=== PATIENT | female | born 1940 | race Caucasian/White ===

== ENCOUNTER 2021-01-23 13:05 | Outpatient (REF) | payer OTHER, SELFPAY ==
[2021-01-23 14:40] LABS: Free T4 (Free Thyroxine) 0.97 ng/dL (0.71-1.85); Thyroid Stimulating Hormone 10.24 uIU/mL (0.32-4.0)
[2021-01-24 09:26] LABS: Insulin Level Total 5.9 uIU/mL
== END 2021-01-23 13:06 | disposition home or self-care (01) ==
LOC: HO.HMGCLDS 13:05
PROVIDERS: Visit Provider Internal Medicine
DX: E03.9 Hypothyroidism, unspecified (principal); E16.2 Hypoglycemia, unspecified
CPT/HCPCS: 36415; 83525; 84439; 84443

== ENCOUNTER 2021-04-16 10:51 | Outpatient (REF) | payer OTHER, SELFPAY ==
--- NOTE | 2021-04-16 | PFT_ITS ---
Forced vital capacity, FEV1, SIW50-20, and MVV are all normal rather somewhat super normal. Post bronchodilator therapy, no significant change is noted. Total lung capacity and residual volume also slightly super normal. Diffusion capacity is slightly decreased. CONCLUSION: Normal pulmonary function test. Very slight decrease in diffusion capacity is probably nonspecific or due to non-pulmonary factors. Clinical correlation recommended. MD BULL Nava/MODL / [id number]
== END 2021-04-16 10:52 | disposition home or self-care (01) ==
LOC: HO.RESP 10:51
PROVIDERS: PCP Internal Medicine; Visit Provider Internal Medicine
DX: R06.00 Dyspnea, unspecified (principal)
CPT/HCPCS: 94060; 94729

== ENCOUNTER → 2021-04-25 11:41 | Outpatient (BNVA) | payer OTHER, SELFPAY | PROVIDERS: PCP Internal Medicine; Visit Provider Internal Medicine Pulmonary Disease | DX: R06.00 Dyspnea, unspecified (principal) | CPT/HCPCS: 99202 ==

== ENCOUNTER 2022-03-13 12:34 | Outpatient (REF) | payer OTHER, SELFPAY ==
[2022-03-13 13:52] LABS: Anion Gap 12 (12-20); Blood Urea Nitrogen 21 mg/dL (9-16); Calcium 9.9 mg/dL (8.4-10.2); Carbon Dioxide 23 mmol/L (22-29); Chloride 108 mmol/L (96-108); Estimated Glomerular Filt Rate 54; Glucose Fasting 96 mg/dL (60-99); Potassium 4.2 mmol/L (3.3-5.1); Sodium 139 mmol/L (135-145)
[2022-03-13 14:31] LABS: Folate 10.3 ng/mL (> or = 4.0); Vitamin B12 221 pg/mL (200-900)
[2022-03-13 14:35] LABS: Erythrocyte Sedimentation Rate 11 MM/HR (0-20)
[2022-03-15 04:47] LABS: Lyme Abs Screen <0.90 index
== END 2022-03-13 12:35 | disposition home or self-care (01) ==
LOC: HO.LAB 12:34
PROVIDERS: PCP Internal Medicine; Visit Provider Psychiatry & Neurology Neurology
DX: G62.9 Polyneuropathy, unspecified (principal)
CPT/HCPCS: 36415; 80048; 82607; 82746; 85652; 86617; 86618

== ENCOUNTER 2023-07-31 12:00 | Emergency (ER) | payer OTHER, SELFPAY ==
[2023-07-31 12:04] VITALS: BP 127/80; PULSE 94; RESP 18; TEMP 36.8; O2SAT 100; BMI 24.0
--- NOTE | 2023-07-31 12:05 | ED_ITS ---
HPI - General Adult General Chief complaint: Upper Respiratory Symptoms Stated complaint: Asthma Attack Source: patient Mode of arrival: ambulatory Limitations: no limitations History of Present Illness HPI narrative: Patient is an 83-year-old female presenting to the emergency department with complaint of sore throat and states pain radiates up to her ears for 2 days. States that taking a deep breath makes her throat hurt more. Took a Covid test at home yesterday which was positive. Also complains of body aches and fatigue. MD complaint: sore throat, positive Covid test Onset (ago): day(s) Radiation: other (ears) Severity: severe Quality: burning Pain Consistency: constant Relieving factors: none Exacerbating factors: none Associated symptoms: other (fatigue, generalized body aches) Treatments prior to arrival: none Related Data Previous Rx's Medication Instructions Recorded albuterol sulfate 90 mcg/actuation 2 puff inhalation Q4-6H PRN 04/25/21 aerosol inhaler shortness of breath or wheezing 30 days #1 ea lorazepam 0.5 mg tablet (Ativan) 0.25 mg (1/2 x 0.5 mg) PO BID PRN 06/17/22 anxiety #8 tabs levothyroxine 112 mcg tablet 112 mcg PO DAILY 90 days #90 tabs 01/18/23 rosuvastatin 10 mg tablet 10 mg PO BEDTIME #90 tabs 01/18/23 nirmatrelvir 300 mg (150 mg See Rx Instructions PO .COMPLEX 07/31/23 x2)-ritonavir 100 mg tablet,dose #30 ea pack (Paxlovid) Allergies Allergy/AdvReac Type Severity Reaction Status Date / Time No Known Allergies Allergy Verified 07/31/23 12:10 Review of Systems Review of Systems: As per HPI. Yes all other systems are reviewed and are negative Constitutional: Constitutional: Reports as per HPI [facility] Past Medical History Medical History Acquired hypothyroidism Dyspnea Floaters in visual field Hypoglycemia Overweight (BMI 25.0-29.9) Pure hypercholesterolemia Transient visual disturbance Surgical History History of appendectomy History of laparoscopic cholecystectomy Family History Family History Father Heart disease Social History Social History Housing: Condominium Alcohol intake: current Alcohol intake frequency: holidays/special occasions only Patient Tobacco Use Status: Former Tobacco user e-Cigarette/Vaping Use: Never Used Second Hand Smoke Exposure: Yes service: No Current occupational status: retired Cognitive needs: No Hearing needs: Yes Vision needs: Yes Physical Exam ED Vital Signs: Vital Signs - 24 hr 07/31/23 12:04 Temperature 98.2 F Pulse Rate 94 Respiratory Rate 18 Blood Pressure 127/80 Pulse Oximetry 100 Oxygen Delivery Method Room Air BMI result Body Mass Index 24.0 Vital signs have been reviewed and appear to be correct. Blood pressure normal. Heart rate normal. Respiratory rate normal. Temperature normal. Oxygen saturation normal. Const General: cooperative, healthy appearing and no acute distress Orientation/consciousness: oriented to person, oriented to place, oriented to time and patient oriented x3 Limitations: no limitations HENMT Head: Yes normocephalic and Yes atraumatic Ears: hearing grossly normal bilaterally, external ears normal, TM's normal bilaterally and EAC's normal General nose exam: Normal external nose present Face and sinus: Yes face symmetric Mouth: Normal oral and palatal mucosa present, oropharynx normal and moist mucous membranes Throat: Yes uvula midline, No uvular edema, Yes cobblestoning and Yes other (no edema or exudate, no trismus) Eyes Pupils: Equal, round and reactive pupils present Neck Neck: Yes normal visual inspection and Yes supple Lymphatic: no lymphadenopathy noted Resp Effort & Inspection: normal respiratory effort and able to speak in complete sentences Auscultation: clear to auscultation bilaterally Cardio Rate: regular rate Rhythm: regular rhythm Heart sounds: S1 normal heart sound present and S2 normal heart sound present GI Palpation (GI): Soft to palpation and nontender Auscultation: normoactive bowel sounds General: Yes no CVA tenderness Back/Spine/Pelvis Back: no CVA tenderness Skin General skin exam: elasticity normal and turgor normal Neuro General: oriented to person, oriented to place, oriented to time, patient oriented x3, moves all extremities, no focal motor deficits and CN's II-XI intact bilaterally Cranial nerves: Yes Equal, round and reactive pupils present Cognition (Neuro): normal cognition Extrem General: Yes full ROM, Yes no pedal edema and Yes no calf tenderness Psych Mental Status: mental status grossly normal Affect: normal affect Thought process: Normal thought process present Medical Decision Making Medical Decision Making [facility] Narrative: Patient is an 83-year-old female presenting to the emergency department with complaint of sore throat and states pain radiates up to her ears for 2 days. On exam patient is awake, A+Ox3, VS WNL, afebrile, normal neurological exam without focal deficits, physical exam findings as above. Given reported symptoms and physical exam findings, initial differential includes COVID, influenza, strep pharyngitis, other viral illness. COVID swab positive, swabs for flu and strep both negative. Patient updated on results all questions answered. Patient medicated with dexamethasone in the ED. Discussed treatment with Paxlovid which patient is agreeable to. Advised patient to alternate Tylenol and ibuprofen as needed for sore throat. Instructed patient to follow-up with primary care provider. Return precautions discussed at bedside. Patient verbalized understanding of and agreement with plan. Differential Diagnosis Differential Diagnoses: The differential diagnosis associated with the presentation includes As per [facility]. Lab Data [facility] Lab Attestation statement: I reviewed the patient's lab results. As per [facility]. Labs: Lab Results 07/31/23 Range/Units 12:14 COVID-19 (MARTINEZ) Positive A (Negative) COVID-19 Clin Com See Note Influenza Type A (TRINI) Negative (Negative) Influenza Type B (TRINI) Negative (Negative) Influenza A & B Note See Note S. pyogenes GrpA TRINI Negative (Negative) External Record Review External record reviewed: Inpatient record, Office record and Outpatient record Prescription Management I considered prescription management with: Antiviral and Other Discharge Plan Discharge Clinical Impression: COVID-19 Patient Disposition: Home, Self-Care Instructions: COVID-19 (Coronavirus Disease 2019) (ED) Additional Instructions: You were evaluated in the emergency department today for sore throat, fatigue, and body aches. Your COVID test was resulted as positive. You should continue to isolate at home for another 4 days. You should continue to wear mask for 5 days after that. You were given a one-time dose of a steroid in the emergency department today to decrease inflammation. You should also take 650mg Tylenol and 400mg ibuprofen every 6 hours. If necessary, you can alternate these medications every 3 hours. For example, a at noon take Tylenol, then at 3:00 p.m. take ibuprofen, then at 6:00 p.m. take Tylenol. You were offered treatment with Paxlovid which you agreed to, the prescription was sent to your pharmacy. Return to the emergency department with worsening shortness of breath, chest pain, fever that does not improve with Tylenol or ibuprofen, persistent vomiting, or any other concerning symptoms. Please follow-up with your primary care provider this week. Prescriptions: New Paxlovid 300 mg (150 mg x 2)-100 mg tablets,dose pack See Rx Instructions .ROUTE .COMPLEX Qty: 30 0RF Rx Instructions: take TWO 150 mg tablets of nirmatrelvir with ONE 100 mg tablet of ritonavir twice daily for 5 days No Action levothyroxine 112 mcg tablet 112 mcg PO DAILY 90 Days Qty: 90 1RF rosuvastatin 10 mg tablet 10 mg PO BEDTIME Qty: 90 0RF lorazepam [Ativan] 0.5 mg tablet 0.25 mg PO BID PRN (Reason: anxiety) Qty: 8 0RF albuterol sulfate 90 mcg/actuation HFA aerosol inhaler 2 puff inhalation Q4-6H PRN (Reason: shortness of breath or wheezing) 30 Days Qty: 1 3RF
[2023-07-31 12:36] LABS: COVID-19 Test Positive (Negative); IDNOW Serial# BCCEAD1C
[2023-07-31 12:37] LABS: IDNOW Serial# 08D9AD1C; Strep A Nucleic Acid Negative (Negative)
[2023-07-31 12:40] LABS: IDNOW Serial# 9DB6401D; Influenza A Negative (Negative); Influenza B2 Negative (Negative)
[2023-07-31] MEDS: dexAMETHasone 2 MG TABLET 10 MG PO (13:45)
== END 2023-07-31 13:51 | disposition home or self-care (01) ==
PROVIDERS: Registered Nurse Emergency; Emergency Provider Emergency Medicine
DX: U07.1 COVID-19 (principal); J45.909 Unspecified asthma, uncomplicated
CPT/HCPCS: 87502; 87635; 87651; 99282; 99283; J8540

== ENCOUNTER → 2025-04-13 00:41 | Outpatient (BNV) | payer OTHER, SELFPAY | PROVIDERS: PCP Internal Medicine; Visit Provider Radiology Diagnostic Radiology | DX: S80.12XA Contusion of left lower leg, initial encounter (principal); W19.XXXA Unspecified fall, initial encounter | CPT/HCPCS: 73590 ==

== ENCOUNTER 2025-04-13 01:00 | Emergency (ER) | payer OTHER, SELFPAY ==
--- NOTE | ~2025-04-13 | XR_ITS ---
CLINICAL HISTORY: fall 2 views left tibia-fibula Comparison: None Findings: There is no fracture. Joint alignment is normal. There is no radiopaque foreign body. There is subcutaneous edema. Impression: No acute osseous abnormality. This document has been electronically signed by: Josué Velasquez MD on 04/13/2025 02:53:51
[2025-04-13 01:07] VITALS: BP 138/77; PULSE 98; O2SAT 98
[2025-04-13 01:16] VITALS: BP 148/80; PULSE 100; RESP 17; TEMP 36.8; O2SAT 93; BMI 25.8
[2025-04-13 03:29] VITALS: BP 133/79; PULSE 83; RESP 14; TEMP 35.7; O2SAT 94
--- NOTE | 2025-04-13 03:47 | ED.GENADULT ---
HPI - General Adult General Chief complaint: Fall Stated complaint: Mech Fall, L leg injury, H/S, - Thinners, Time Seen by Provider: 04/13/25 03:06 Source: patient Mode of arrival: EMS Limitations: no limitations History of Present Illness ED Provider: Curry PENA HPI narrative: The patient is a an 84-year-old female presenting to the ED reporting earlier today while taking a shower she suffered a mechanical fall while stepping out of the shower after the shower mat moved unexpected with the causing her to fall onto her left anterior valente. The patient denies head strike or LOC, denies anticoagulation. The patient reports she had pain and bruising which she noted beginning in her left valente and radiating towards her left calf. The patient denies other acute somatic complaint. At time of this provider's interviewed the patient states she is already feeling markedly improved and feels she over-reacted. The patient denies any pain in the lower extremity, denies any pain with ambulation while in the ED. patient denies any chest pain, shortness of breath, abdominal pain, headache, focal neurological deficit, dizziness, or other prodrome prior to the mechanical fall. The patient reports she feels at her baseline state of health in the ED. Related Data Previous Rx's ?Medication ?Instructions ?Recorded albuterol sulfate 90 mcg/actuation 2 puff inhalation Q4-6H PRN 04/25/21 aerosol inhaler shortness of breath or wheezing 30 days #1 ea lorazepam 0.5 mg tablet (Ativan) 0.25 mg (1/2 x 0.5 mg) PO BID PRN 06/17/22 anxiety #8 tabs rosuvastatin 10 mg tablet 10 mg PO BEDTIME #90 tabs 01/18/23 nirmatrelvir 300 mg (150 mg See Rx Instructions PO .COMPLEX 07/31/23 x2)-ritonavir 100 mg tablet,dose #30 ea pack (Paxlovid) levothyroxine 112 mcg tablet 112 mcg PO DAILY 90 days #90 tabs 03/23/25 Allergies Allergy/AdvReac Type Severity Reaction Status Date / Time No Known Allergies Allergy Verified 04/13/25 01:17 Review of Systems Review of Systems: Yes all other systems are reviewed and are negative PMFSH Past Medical History Medical History Acquired hypothyroidism Dyspnea Floaters in visual field Hypoglycemia Overweight (BMI 25.0-29.9) Pure hypercholesterolemia Transient visual disturbance Surgical History History of appendectomy History of laparoscopic cholecystectomy Family History Family History Father Heart disease Social History [facility] Alcohol intake: current Alcohol intake frequency: holidays/special occasions only Patient Tobacco Use Status: Former Tobacco user e-Cigarette/Vaping Use: Never Used Second Hand Smoke Exposure: Yes Advance Directives: No Advance Directives Information Provided: Yes Do you have a plan to hurt others: No Plan service: No Current occupational status: retired Cognitive needs: No Hearing needs: Yes Vision needs: Yes Physical Exam ED Vital Signs: Vital Signs - 24 hr 04/13/25 01:16 04/13/25 03:29 04/13/25 04:09 Temperature 98.3 F 96.3 F L 96.3 F L Pulse Rate 100 83 83 Respiratory Rate 17 14 14 Blood Pressure 148/80 H 133/79 133/79 Pulse Oximetry 93 94 94 Oxygen Delivery Method Room Air Room Air Room Air BMI result Body Mass Index 25.8 CONSTITUTIONAL: The patient appears non-toxic, well nourished and in no acute distress. Vital signs as documented. HEAD: Atraumatic, normocephalic. EYES: EOMs grossly intact, pupils equal, conjunctiva clear, no exudate. ENT: Nares patent, no discharge. Airway patent, no audible stridor, visible mucosa is pink and moist without noted lesions. NECK: trachea is midline, no obvious masses or gross abnormalities. CHEST: Symmetric movement, normal appearance. LUNGS: Non-labored work of breathing. CARDIAC: No evidence of hypoperfusion. ABDOMEN: Nondistended, no obvious injury. : Deferred. EXTREMITIES: There is [id number] ecchymosis noted of the mid to proximal anterior left valente, distal CSM intact, 2+ DP/PT pulses, no bony tenderness or crepitus. No open injury. Moves all extremities spontaneously without reported pain. No obvious injury or deformity noted. NEURO: Alert and oriented x3, CN II-XII appear grossly intact. Cerebellar Functioning grossly intact. Speech clear and appropriate. SKIN: Warm, dry, color appropriate. No rashes or lesions noted. Medical Decision Making Medical Decision Making MDM Narrative: The patient is an 84-year-old female presenting to the ED for evaluation of left valente pain status post mechanical fall while getting out of the shower. At time the patient interviewed the patient reports her symptoms have resolved and she feels she over-reacted to the initial fall. The patient denies any acute somatic complaint as requesting discharge home. Patient's x-ray shows no evidence of acute fracture. Patient's exam is otherwise benign, patient ambulates with a steady gait without assistance. Patient will be discharged home with contusion instructions. Radiology Impression Discussion of test interpretation with radiology: I have reviewed the radiologist's reading. Radiologist Impression: CLINICAL HISTORY: fall 2 views left tibia-fibula Comparison: None Findings: There is no fracture. Joint alignment is normal. There is no radiopaque foreign body. There is subcutaneous edema. Impression: No acute osseous abnormality. This document has been electronically signed by: Josué Velasquez MD on 04/13/2025 02:53:51 Discharge Plan Discharge Clinical Impression: Contusion of left lower leg, initial encounter Fall Qualifiers: Encounter type: initial encounter Qualified Code(s): W19.XXXA - Unspecified fall, initial encounter Patient Disposition: Home, Self-Care Instructions: Contusion in Adults (ED), Fall Prevention (ED) Additional Instructions: Thank you for choosing [facility]'s Emergency Department for your care today. Thankfully your x-ray today shows no fracture of your left lower leg as a result of your fall in the shower. At this time there is no evidence of an acute process requiring admission to the hospital or continued ED observation, and it is safe to discharge you home. Your fall did result in a significant contusion/bruise of the front of your left lower leg, please apply ice to this area to reduce swelling and pain. The bruise will begin to turn colors and may advanced down towards your foot, this is natural. You may take alternating (staggered) doses of ibuprofen 600mg and Tylenol 1000mg every 4 hours as needed for any additional pain. Please also continue taking your regularly prescribed medications. Please rest the injured area, and apply ice for 20 minutes every hour. Please follow up with your primary care physician for re-evaluation, additional management of your symptoms, and continued preventative care. If you do not have a primary care physician, please call the [facility] at [phone] to establish a new primary care physician. While waiting to establish your new primary care physician, you can call our Walk[facility]in [facility] at [phone] for non-emergency needs. Please return to the emergency department if you develop a severe or sudden change in your symptoms, a fever over 100.4 that does not improve with Tylenol or Ibuprofen, recurrent vomiting, or any other new or worsening symptoms or concerns. Prescriptions: No Action rosuvastatin 10 mg tablet 10 mg PO BEDTIME Qty: 90 0RF levothyroxine 112 mcg tablet 112 mcg PO DAILY 90 Days Qty: 90 1RF Paxlovid 300 mg (150 mg x 2)-100 mg tablets,dose pack See Rx Instructions .ROUTE .COMPLEX Qty: 30 0RF Rx Instructions: take TWO 150 mg tablets of nirmatrelvir with ONE 100 mg tablet of ritonavir twice daily for 5 days lorazepam [Ativan] 0.5 mg tablet 0.25 mg PO BID PRN (Reason: anxiety) Qty: 8 0RF albuterol sulfate 90 mcg/actuation HFA aerosol inhaler 2 puff inhalation Q4-6H PRN (Reason: shortness of breath or wheezing) 30 Days Qty: 1 3RF Referrals: Diaz Knapp MD [Primary Care Provider, Internal Medicine] Clinical Impression: Fall; Contusion of left lower leg, initial encounter Interventions: ED Discharge Assessment Last Done: 04/13/25 04:09 Discharge Date/Time: 04/13/25 04:09 Print Language: Indian
--- NOTE | 2025-04-13 04:06 | PC.NURSE ---
patient ambulates with steady gait independently. uber confirmed at bedside with this RN, in waiting
[2025-04-13 04:09] VITALS: BP 133/79; PULSE 83; RESP 14; TEMP 35.7; O2SAT 94
== END 2025-04-13 04:09 | disposition home or self-care (01) ==
PROVIDERS: Emergency Provider Emergency Medicine; PCP Internal Medicine
DX: S80.12XA Contusion of left lower leg, initial encounter (principal); W18.2XXA Fall in (into) shower or empty bathtub, initial encounter; Y93.E1 Activity, personal bathing and showering; Y92.002 Bathroom of unspecified non-institutional (private) residence as the place of occurrence of the external cause; Y99.8 Other external cause status; Z87.891 Personal history of nicotine dependence
CPT/HCPCS: 73590; 99283

== ENCOUNTER 2025-04-14 10:04 | Outpatient (REF) | payer OTHER, SELFPAY ==
[2025-04-14 11:09] LABS: MANUAL DIFF FLAG NO
[2025-04-14 11:38] LABS: Hematocrit 31.0 % (37.0-47.0); Hemoglobin 11.2 g/dl (12.0-16.0); Imm Gran Abs Auto 0.12 X10*3/uL (0.00-0.03); Imm Gran Pct Auto 1.2 % (0.0-0.4); Lymphocytes Absolute Auto 1.1 X10*3/uL (1.2-4.9); Mean Corpuscular HGB Conc 36.1 g/dl (31.0-35.0); Mean Corpuscular Hemoglobin 30.2 pg (27.0-33.0); Mean Corpuscular Volume 83.6 fL (80.0-98.0); NRBC Abs Auto 0.000 X10*3/uL (0.0-0.012); NRBC Pct Auto 0.0 /100WBC (0.0-0.2); Platelet Count 377 X10*3/uL (160-400); Red Blood Count 3.71 X10*6/uL (4.20-5.50); White Blood Count 9.6 X10*3/uL (4.8-10.8)
[2025-04-14 12:36] LABS: Alanine Aminotransferase 39 U/L (0-31); Albumin Level 4.0 g/dL (3.5-5.0); Alkaline Phosphatase 113 U/L (39-117); Anion Gap 10 (12-20); Aspartate Amino Transferase 46 U/L (5-31); Blood Urea Nitrogen 21 mg/dL (9-16); Calcium 8.5 mg/dL (8.4-10.2); Carbon Dioxide 23 mmol/L (22-29); Chloride 93 mmol/L (96-108); Cholesterol 224 mg/dL (<200); Estimated Glomerular Filt Rate > 60; HDL Cholesterol 73 mg/dL (>40); Potassium 4.2 mmol/L (3.3-5.1); Sodium 122 mmol/L (135-145); Total Protein 6.6 g/dL (6.5-8.0); Triglycerides 64 mg/dL (<150)
[2025-04-14 13:18] LABS: Free T4 (Free Thyroxine) 0.74 ng/dL (0.71-1.85)
== END 2025-04-14 10:05 | disposition home or self-care (01) ==
LOC: HO.LAB 10:04
PROVIDERS: PCP Physician Assistant; Visit Provider Physician Assistant
DX: R41.89 Other symptoms and signs involving cognitive functions and awareness (principal); E03.9 Hypothyroidism, unspecified; E78.00 Pure hypercholesterolemia, unspecified; R41.3 Other amnesia; Z79.899 Other long term (current) drug therapy
CPT/HCPCS: 36415; 80048; 80061; 80076; 82306; 84439; 84443; 85025; 99202

== ENCOUNTER 2025-04-14 10:04 | Outpatient (AMB) | payer OTHER, SELFPAY ==
--- OUTSIDE RECORDS SUMMARY | 2024-08-19 07:30 | XMS_ITS ---
Author Organization [facility] Address [address] [place] [address] Care Team Providers Care Talent Recruiter Name Role Phone JonesDaly bean Unavailable [phone] Carl Newsome Unavailable [phone] Encounters Encounter Location Date Provider Diagnosis [facility] [address] [place] [address] 08/19/2024 Carl Newsome Plan Of Treatment No Information Progress Notes * Shereen SALAZARDOB:1940 ( 84 yo F)Acc No.[id number]:08/19/2024 Progress Notes Patient: Shereen REYES Provider: Jennifer Newsome DPM :1940 A ge:84 Y S ex:Female Date:08/19/2024 Address:[address] [place] [phone] Subjective: * Chief Complaints: * * Medical [...] 10/19/2023 Generated for Sang price/Manan/Dudleyitting on: 0 04/14/2025 10:25 AM EDT
--- NOTE | 2025-04-14 10:15 | A.OFFPC_ITS ---
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 Here today with with Yohan gusman and mayda Bingham. ARRIVED 22 MINUTES LATE FOR 30 MINUTE APPOINTMENT. Chronic problems addressed. Hyperlipidemia- not taking rosuvastatin Hypothyroidism-taking levothyroxine as prescribed Cognitive impairment with anxiety- family reporting short-term memory loss. She was previously referred to Neurology but does not look like she was ever given an appointment. She currently lives alone and is independent on ADLs. She is not driving. She does take lorazepam but her niece reports increasing anxiety and paranoia still. Asthma-rare albuterol use Falls-not frequent. However, patient fell in the shower the other day after losing her footing. She does have grab bars in the shower. She has contusion on the left lower leg. She was seen in the ER for this. falls several days ago. in shower . grab chairs. contusion Concerns: Bilateral lower extremity edema Discussed that any additional concerns need to be brought up at a following appointment Health maintenance: No longer undergoing mammograms or DEXA scans No longer undergoing colonoscopy ROS: General: No fevers, malaise, unintentional weight loss Cardiovascular: No chest pain, palpitations, or leg edema Respiratory: No shortness of breath, wheezing, cough MSK: No myalgia, back pain Neuro: No headaches, weakness, paresthesias Skin: No rashes or lesions EXAM: Constitutional - Awake and Alert, No apparent distress Eyes - PERRL Cardiovascular - S1S2, RRR, 2+ pitting edema of the bilateral lower extremities Respiratory - Normal lung expansion, Normal respiratory effort, No respiratory distress, CTA bilaterally Extremities - no calf tenderness bilaterally, no swelling Skin - Warm/Dry. Contusion of the left lower extremity Neurological - Alert & oriented x3 Psychological - Appropriate affect [facility] Medical History Acquired hypothyroidism Dyspnea Floaters in visual field Hypoglycemia Overweight (BMI 25.0-29.9) Pure hypercholesterolemia Transient visual disturbance Surgical History History of appendectomy History of laparoscopic cholecystectomy Family History Father Heart disease [facility] Alcohol intake: current Alcohol intake frequency: holidays/special occasions on ly Patient Tobacco Use Status: Former Tobacco user e-Cigarette/Vaping Use: Never Used Second Hand Smoke Exposure: Yes service: No Current occupational status: retired Cognitive needs: No Hearing needs: Yes Vision needs: Yes Questionnaire Thrive Questionnaire Date Thrive assessed: 12/26/21 AMRITA-7 AMB Questionnaire AMRITA-7 Date AMRITA - 7 assessed: 12/26/21 Source: Developed by Drs. Mark Lyn, Josi Amaral, Kevin Fisher and colleagues, with an educational zahra from [employer]. Physical exam (Primary Care) Vital Signs: Last Vital Signs Temp 97.7 F 04/14/25 10:22 Pulse 85 04/14/25 10:22 Resp 16 04/14/25 10:22 BP 120/64 04/14/25 10:22 Pulse Ox 97 04/14/25 10:22 Oxygen Delivery Method Room Air 04/14/25 10:22 Tobacco/Smoking Status: Tobacco use Status Tobacco use date assessed 12/26/21 04/14/25 10:18 Patient Tobacco Use Status Former Tobacco user 04/14/25 10:18 e-Cigarette/Vaping Use Never Used 04/14/25 10:18 Thrive Assessment: Date of Thrive Assessment Date Thrive assessed 12/26/21 04/14/25 10:18 Coding Level of Care Code New Pt Level 4 (28997) Complex EM visit Add On G2211 Diagnoses Cognitive impairment R41.89 Acquired hypothyroidism E03.9 Pure hypercholesterolemia E78.00 Memory loss R41.3 Assessment & Plan Assessment & Plan (1) Cognitive impairment: Code(s): R41.89 - Other symptoms and signs involving cognitive functions and awareness Category: Medical Plan: Referred to memory Clinic. Prescribed quetiapine for agitation/paranoia. Agree with no driving. Currently functioning well at home and able to perform ADLs. Continue use of grab bars and will prescribe cane and shower chair. MRI of the brain ordered (2) Acquired hypothyroidism: Code(s): E03.9 - Hypothyroidism, unspecified Category: Medical Plan: TSH with reflex free T4 ordered. Continue levothyroxine (3) Pure hypercholesterolemia: Code(s): E78.00 - Pure hypercholesterolemia, unspecified Category: Medical Plan: Lipid panel ordered. No longer taking rosuvastatin. Diet low in saturated fats and highly processed foods (4) Memory loss: Code(s): R41.3 - Other amnesia Category: Medical Plan: Referred to neurology. MRI of the brain ordered due to memory loss and worsening cognitive impairment Plan Follow-up in the office for further discussion on acute concerns Compression stockings ordered for bilateral lower extremity edema Orders: Orders 2 TSH reflex Free T4 Today E03.9 - Hypothyroidism, unspecified, E78.00 - Pure hypercholesterolemia, unspecified, R41.89 - Other symptoms and signs involving cognitive functions and awareness Vitamin D 25-OH Total Today E03.9 - Hypothyroidism, unspecified, E78.00 - Pure hypercholesterolemia, unspecified, R41.89 - Other symptoms and signs involving cognitive functions and awareness MR head/brain wo con Today R41.3 - Other amnesia, R41.89 - Other symptoms and signs involving cognitive functions and awareness Basic Metabolic Panel Today E03.9 - Hypothyroidism, unspecified, E78.00 - Pure hypercholesterolemia, unspecified, R41.89 - Other symptoms and signs involving cognitive functions and awareness Liver Panel Today E03.9 - Hypothyroidism, unspecified, E78.00 - Pure hypercholesterolemia, unspecified, R41.89 - Other symptoms and signs involving cognitive functions and awareness Lipid Panel Today E03.9 - Hypothyroidism, unspecified, E78.00 - Pure hypercholesterolemia, unspecified, R41.89 - Other symptoms and signs involving cognitive functions and awareness Complete Blood Count Auto Diff Today E03.9 - Hypothyroidism, unspecified, E78.00 - Pure hypercholesterolemia, unspecified, R41.89 - Other symptoms and signs involving cognitive functions and awareness Referrals Neurology Referral E78.00 - Pure hypercholesterolemia, unspecified Medications: New reji.stocking,thigh,reg,med As directed 24 ea 0RF R60.0 - Localized edema reji.stocking,thigh,reg,med As directed 24 ea 0RF quetiapine (Seroquel) 25 mg PO .@1500 90 tabs 1RF hydroxyzine HCl 25 mg PO BID PRN 180 tabs 1RF itching Shower Chair As directed 1 ea 0RF R26.81 - Unsteadiness on feet, W18.2XXA - Fall in (into) shower or empty bathtub, initial encounter cane As directed. Three prong 1 ea 0RF R26.81 - Unsteadiness on feet, R29.6 - Repeated falls
[2025-04-14 10:22] VITALS: BP 120/64; PULSE 85; RESP 16; TEMP 36.5; O2SAT 97
--- OUTSIDE RECORDS SUMMARY | 2025-04-14 10:25 | XMS_ITS | Clinical Summary ---
Author Organization [facility] Address [address] [id number] Care Team Providers Care Qualitative Researcher Name Role Phone Unknown, Pcp MD Primary Care Provider Unavailabl e Allergies No known active allergies Medications levothyroxine (SYNTHROID, LEVOTHROID) 112 MCG tablet Take 112 mcg by mouth daily at 6:30 am. Active ondansetron (ZOFRAN) 4 MG tablet Take 1 tablet (4 mg total) by mouth every 4 (four) hours as needed. 12 tablet 08/16/2017 Active Active Problems No known active problems Social History Tobacco Use Types Packs/Day Years Used Date Smoking Tobacco: Never Assessed Comments Unknown Sex and Gender Information Value Date Recorded Sex Assigned at Not on file Legal Sex Female 12:39 AM EST Gender Identity Not on file Sexual Orientation Not on file Last Filed Vital Signs Vital Sign Reading Time Taken Comments Blood Pressure 135/67 08/16/2017 4:45 AM EST Pulse 82 08/16/2017 4:45 AM EST Temperature 36.4 C (97.6 F) 08/16/2017 2:48 AM EST Respiratory Rate 18 08/16/2017 4:45 AM EST Oxygen Saturation 97% 08/16/2017 4:45 AM EST Inhaled Oxygen Concentration - - Weight - - Height 154.9 cm (5' 1 ) 08/16/2017 12:43 AM EST Body Mass Index - - Plan of Treatment Not on file [place] [facility] [place] [address] [facility] [employer] Care Teams Qualitative Researcher Relationship Specialty Start Date End Date Unknown, Pcp, Unknown Address [address] [place] [address] PCP - General 08/16/17
== END 2025-04-14 10:45 | disposition home or self-care (01) ==
LOC: HO.HMCHD 10:05
PROVIDERS: Visit Provider Physician Assistant
DX: R41.89 Other symptoms and signs involving cognitive functions and awareness (principal); E03.9 Hypothyroidism, unspecified; E78.00 Pure hypercholesterolemia, unspecified; R41.3 Other amnesia

== ENCOUNTER 2025-05-15 13:04 | Outpatient (AMB) | payer OTHER, SELFPAY ==
--- OUTSIDE RECORDS SUMMARY | 2024-08-19 07:30 | XMS_ITS ---
Author Organization [facility] Address [address] [place] [address] Care Team Providers Care Ruby On Rails Engineer Name Role Phone JonesDaly bean Unavailable [phone] Carl Newsome Unavailable [phone] Encounters Encounter Location Date Provider Diagnosis [facility] [address] [place] [address] 08/19/2024 Carl Newsome Plan Of Treatment No Information Progress Notes * Shereen SALAZARDOB:1940 ( 84 yo F)Acc No.[id number]:08/19/2024 Progress Notes Patient: Shereen REYES Provider: Jennifer Newsome DPM :1940 A ge:84 Y S ex:Female Date:08/19/2024 Address:[address] [place] [phone] Subjective: * Chief Complaints: * * Medical History: Objective: * Vitals: Assessment: Plan: * Treatment: * Images: * The named appointment provid er may or may not be the originator of this progress note, and it is not deemed complete until electronically signed by the appointment provider. Sign off status: Pending * Provider: Jennifer Newsome DPM Date: 10/19/2023 Generated for Sang price/Manan/Dudleyitting on: 0 05/15/2025 01:59 PM EDT
--- NOTE | 2025-05-15 13:11 | A.OFFPC_ITS ---
Vital Signs 05/15/25 13:16 Height 5 ft 2 in BP 120/84 Pulse 91 Pulse Source Pulse Oximeter Temp 98.2 F Pulse Oximetry (%) 99 Oxygen Delivery Method Room Air Intake Visit Reasons: 1 month f/u Business Specialist Required: No Accompanied by: Brother Allergies No Known Allergies Allergy (Verified 05/15/25 13:12) Tobacco use date assessed: 12/26/21 HPI HPI Comments History of Present Illness Details 84-year-old female with history of hypot hyroidism, hyperlipidemia, asthma, cognitive impairment presents to the office today for follow up. Hyperlipidemia- not taking rosuvastatin Hypothyroidism-taking levothyroxine as prescribed. maybe not? question Cognitive impairment with anxiety- family reporting short-term memory loss. She was previously referred to Neurology but does not look like she was ever given an appointment. She currently lives alone and is independent on ADLs. She is not driving. She does take lorazepam but her niece reports increasing anxiety and paranoia still. At last visit, pt was found to be quite confused. Sodium ultimately found to be 122 and sent to ED. Admitted for [facility]. TSH significant elevated near 50, thought to be cause of hypnetremia. Seen by endo recommending levothyroxine 125mcg. Also evaluated by nephro. Advised sertraline can be restarted and titrate pending sodium levels. Despite changes, memory deficits continue. Healthcare proxy was invoked. She was discharged to [facility] on 05/05. Has already been referred to neuro, awaiting appt and brain MRI. Now home with PT/OT. Per her daughter, DC papers suggested ankle fracture but this is not noted in any discharge paper reviewed from [facility]. Still at [facility]. Per [facility], concerns for cellulitis ble. On exam, pt with venous stasis dermatitis, no infection. No fevers. No diuretic currently for the BLE edema. Unable to tolerate compression stockings. Health maintenance: No longer undergoing mammograms or DEXA scans No longer undergoing colonoscopy ROS: General: No fevers, malaise, unintentional weight loss Cardiovascular: No chest pain, palpitations. see hpi Respiratory: No shortness of breath, wheezing, cough MSK: No myalgia, back pain Neuro: No headaches, weakness, paresthesias. see hpi Skin: No rashes or lesions EXAM: Constitutional - Awake and Alert, No apparent distress Eyes - PERRL Cardiovascular - S1S2, RRR, 2+ pitting edema of the bilateral lower extremities Respiratory - Normal lung expansion, Normal respiratory effort, No respiratory distress, CTA bilaterally Extremities - no calf tenderness bilaterally, no swelling Skin - Warm/Dry. Contusion of the left lower extremity. Venous stasis dermatitis with several weeping ulceration serous fluid Neurological - Alert & oriented to self. moving all extem Psychological - Appropriate affect PFSH Medical History Acquired hypothyroidism Dyspnea Floaters in visual field Hypoglycemia Overweight (BMI 25.0-29.9) Pure hypercholesterolemia Transient visual disturbance Surgical History History of appendectomy History of laparoscopic cholecystectomy Family History Father Heart disease [facility] Alcohol intake: current Alcohol intake frequency: holidays/special occasions only Patient Tobacco Use Status: Former Tobacco user e-Cigarette/Vaping Use: Never Used Second Hand Smoke Exposure: Yes service: No Current occupational status: retired Cognitive needs: No Hearing needs: Yes Vision needs: Yes Questionnaire Thrive Questionnaire Date Thrive assessed: 12/26/21 AMRITA-7 AMB Questionnaire AMRITA-7 Date AMRITA - 7 assessed: 12/26/21 Source: Developed by Drs. Mark Lyn, Josi Amaral, Kevin Fisher and colleagues, with an educational zahra from [employer]. Physical exam (Primary Care) Vital Signs: Last Vital Signs Temp 98.2 F 05/15/25 13:16 Pulse 91 05/15/25 13:16 BP 120/84 05/15/25 13:16 Pulse Ox 99 05/15/25 13:16 Oxygen Delivery Method Room Air 05/15/25 13:16 Tobacco/Smoking Status: Tobacco use Status Tobacco use date assessed 12/26/21 05/15/25 13:17 Patient Tobacco Use Status Former Tobacco user 05/15/25 13:17 e-Cigarette/Vaping Use Never Used 05/15/25 13:17 Thrive Assessment: Date of Thrive Assessment Date Thrive assessed 12/26/21 05/15/25 13:17 Coding Level of Care Code Est Pt Level 5 (29418) Complex EM visit Add On G2211 Diagnoses Hospital discharge follow-up Z09 Cognitive impairment R41.89 Lower extremity edema R60.0 Venous ulcer of ankle I83.003; L97.309 Hyponatremia E87.1 Acquired hypothyroidism E03.9 Time Spent (min) 45 Assessment & Plan Assessment & Plan (1) Hospital discharge follow-up: Code(s): Z09 - Encounter for follow-up examination after completed treatment for conditions other than malignant neoplasm Category: Medical Plan: Hospital discharge paperwork reviewed. Plan as below. Discharge meds reviewed and reconciled (2) Cognitive impairment: Code(s): R41.89 - Other symptoms and signs involving cognitive functions and awareness Category: Medical Plan: [facility] referral placed. MRI brain and neuro referrals already ordered. Cognitive exercises (3) Lower extremity edema: Code(s): R60.0 - Localized edema Category: Medical Plan: Trial short course of furosemide. Recommend compression stockings as toelrated. leg elevation and low sodium diet (4) Venous ulcer of ankle: Code(s): I83.003 - Varicose veins of unspecified lower extremity with ulcer of ankle; L97.309 - Non-pressure chronic ulcer of unspecified ankle with unspecified severity Category: Medical Plan: No evidence of infection/no cellulitis. Complication of venous stasis/venous insufficiency. Discharged pathophys. Recommend compression as above. Trial lasix as above. Dressings as ordered (5) Hyponatremia: Code(s): E87.1 - Hypo-osmolality and hyponatremia Category: Medical Plan: Recheck bmp today. Though to be secondary to uncontrolled hypothyroidism. Levothyroxine as ordered and may continue sertraline (6) Acquired hypothyroidism: Code(s): E03.9 - Hypothyroidism, unspecified Category: Medical Plan: Continue levothyroxine, check TSH Plan Follow up in 3 months. Labs completed following visit today Orders: Orders Basic Metabolic Panel 05/15/25 E03.9 - Hypothyroidism, unspecified, E16.2 - Hypoglycemia, unspecified, E87.1 - Hypo-osmolality and hyponatremia, R41.89 - Other symptoms and signs involving cognitive functions and awareness, R60.0 - Localized edema Complete Blood Count Auto Diff 05/15/25 E03.9 - Hypothyroidism, unspecified, E16.2 - Hypoglycemia, unspecified, E87.1 - Hypo-osmolality and hyponatremia, R41.89 - Other symptoms and signs involving cognitive functions and awareness, R60.0 - Localized edema Liver Panel 05/15/25 E03.9 - Hypothyroidism, unspecified, E16.2 - Hypoglycemia, unspecified, E87.1 - Hypo-osmolality and hyponatremia, R41.89 - Other symptoms and signs involving cognitive functions and awareness, R60.0 - Localized edema TSH reflex Free T4 05/15/25 E03.9 - Hypothyroidism, unspecified, E16.2 - Hypoglycemia, unspecified, E87.1 - Hypo-osmolality and hyponatremia, R41.89 - Other symptoms and signs involving cognitive functions and awareness, R60.0 - Localized edema Referrals [facility] Referral I83.003 - Varicose veins of unspecified lower extremity with ulcer of ankle, L97.309 - Non-pressure chronic ulcer of unspecified ankle with unspecified severity, R26.81 - Unsteadiness on feet, R41.89 - Other symptoms and signs involving cognitive functions and awareness, R53.1 - Weakness, S91.001A - Unspecified open wound, right ankle, i nitial encounter, W18.2XXA - Fall in (into) shower or empty bathtub, initial encounter, Z09 - Encounter for follow-up examination after completed treatment for conditions other than malignant neoplasm Medications: New furosemide (Lasix) 20 mg PO DAILY 14 tabs 0RF gauze bandage (Curad Stretch Gauze) wrap gauze around foot and ankle and secure with tape. Change daily 24 ea 1RF I83.003 - Varicose veins of unspecified lower extremity with ulcer of ankle, L97.309 - Non-pressure chronic ulcer of unspecified ankle with unspecified severity non-adherent bandage Cover ulcerations of the ankle bilaterally after applying ointment. Change daily 50 ea 1RF I83.003 - Varicose veins of unspecified lower extremity with ulcer of ankle, L97.309 - Non-pressure chronic ulcer of unspecified ankle with unspecified severity honey 100% (Manuka Honey) Apply small ribbon to ulcerations of the R ankle prior to dressing topically; 15 mL 1RF I83.003 - Varicose veins of unspecified lower extremity with ulcer of ankle, L97.309 - Non-pressure chronic ulcer of unspecified ankle with unspecified severity
[2025-05-15 13:16] VITALS: BP 120/84; PULSE 91; TEMP 36.8; O2SAT 99
--- OUTSIDE RECORDS SUMMARY | 2025-05-15 14:00 | XMS_ITS | Clinical Summary ---
Author Organization [facility] Address [address] [id number] Care Team Providers Care Energy Rater Name Role Phone Unknown, Pcp MD Primary [...] of Treatment Not on file [facility] [place] [place] [address] [facility] [employer] Care Teams Energy Rater Relationship Specialty Start Date End Date Unknown, Pcp, Unknown Address [address] [place] [id number] PCP - General 08/16/17
== END 2025-05-15 14:07 | disposition home or self-care (01) ==
LOC: HO.HMCHD 13:04
PROVIDERS: Visit Provider Physician Assistant
DX: I83.023 Varicose veins of left lower extremity with ulcer of ankle (principal); L97.329 Non-pressure chronic ulcer of left ankle with unspecified severity; Z09 Encounter for follow-up examination after completed treatment for conditions other than malignant neoplasm; R41.89 Other symptoms and signs involving cognitive functions and awareness; R60.0 Localized edema; E87.1 Hypo-osmolality and hyponatremia; E03.9 Hypothyroidism, unspecified

== ENCOUNTER 2025-05-15 13:04 | Outpatient (REF) | payer OTHER, SELFPAY ==
[2025-05-15 14:28] LABS: MANUAL DIFF FLAG NO
[2025-05-15 15:08] LABS: Hematocrit 33.0 % (37.0-47.0); Hemoglobin 10.9 g/dl (12.0-16.0); Imm Gran Abs Auto 0.04 X10*3/uL (0.00-0.03); Imm Gran Pct Auto 0.5 % (0.0-0.4); Lymphocytes Absolute Auto 1.1 X10*3/uL (1.2-4.9); Mean Corpuscular HGB Conc 33.0 g/dl (31.0-35.0); Mean Corpuscular Hemoglobin 28.8 pg (27.0-33.0); Mean Corpuscular Volume 87.3 fL (80.0-98.0); NRBC Abs Auto 0.000 X10*3/uL (0.0-0.012); NRBC Pct Auto 0.0 /100WBC (0.0-0.2); Platelet Count 406 X10*3/uL (160-400); Red Blood Count 3.78 X10*6/uL (4.20-5.50); White Blood Count 8.3 X10*3/uL (4.8-10.8)
[2025-05-15 15:42] LABS: Alanine Aminotransferase 17 U/L (0-31); Albumin Level 4.1 g/dL (3.5-5.0); Alkaline Phosphatase 101 U/L (39-117); Anion Gap 11 (12-20); Aspartate Amino Transferase 27 U/L (5-31); Blood Urea Nitrogen 22 mg/dL (9-16); Calcium 9.0 mg/dL (8.4-10.2); Carbon Dioxide 26 mmol/L (22-29); Chloride 105 mmol/L (96-108); Estimated Glomerular Filt Rate > 60; Potassium 3.8 mmol/L (3.3-5.1); Sodium 138 mmol/L (135-145); Total Protein 7.0 g/dL (6.5-8.0)
== END 2025-05-15 13:05 | disposition home or self-care (01) ==
LOC: HO.LAB 13:04
PROVIDERS: PCP Physician Assistant; Visit Provider Physician Assistant
DX: Z09 Encounter for follow-up examination after completed treatment for conditions other than malignant neoplasm (principal); E03.9 Hypothyroidism, unspecified; E16.2 Hypoglycemia, unspecified; R41.89 Other symptoms and signs involving cognitive functions and awareness; R60.0 Localized edema; E87.1 Hypo-osmolality and hyponatremia; Z87.891 Personal history of nicotine dependence
CPT/HCPCS: 36415; 80048; 80076; 84443; 85025; 99212

== ENCOUNTER 2025-06-05 15:44 | Outpatient (REF) | payer OTHER, SELFPAY ==
--- NOTE | ~2025-06-05 | XR_ITS ---
CLINICAL HISTORY: M53.82 - Other specified dorsopathies, cervical region 3 views cervical spine Comparison: None Findings: Normal vertebral body alignment. No fractures or dislocations. There is advanced degenerative narrowing of C4-5, C5-6 and C6-7 disc spaces with uncovertebral joint and facet hypertrophy. Moderate foraminal stenosis is suspected at C5-6 and C6-7. Prevertebral soft tissues normal. Lung apices are unremarkable. Impression: Advanced degenerative disc disease without acute skeletal abnormality. This document has been electronically signed by: Alvaro Herzog MD on 06/05/2025 18:21:58
--- OUTSIDE RECORDS SUMMARY | 2025-06-05 18:50 | XMS_ITS | Clinical Summary ---
Author Organization [facility] Address [address] [place] [id number] Care Team Providers Care Director Of Restaurants Name Role Phone Unknown, Pcp MD Primary [...] of Treatment Not on file Insurance Marysol Mckinney [facility] [place] [address] [facility] [employer] Care Teams Director Of Restaurants Relationship Specialty Start Date End Date Unknown, Pcp, Unknown Address [address] [place] [address] PCP - General 08/16/17
== END 2025-06-05 15:45 | disposition home or self-care (01) ==
LOC: HO.XRAY 15:44
PROVIDERS: PCP Physician Assistant; Visit Provider Physician Assistant
DX: M53.82 Other specified dorsopathies, cervical region (principal); R60.0 Localized edema; S91.001A Unspecified open wound, right ankle, initial encounter; I87.2 Venous insufficiency (chronic) (peripheral)
CPT/HCPCS: 72040; 99212

== ENCOUNTER 2025-06-05 15:44 | Outpatient (AMB) | payer OTHER, SELFPAY ==
--- OUTSIDE RECORDS SUMMARY | 2024-08-19 07:30 | XMS_ITS ---
Author Organization [facility] Address [address] [place] [address] Care Team Providers Care Director Business Systems Name Role Phone JonesDaly bean Unavailable [phone] Carl Newsome Unavailable [phone] Encounters Encounter Location Date Provider Diagnosis [facility] [address] [place] [address] 08/19/2024 Carl Newsome Plan Of Treatment No Information Progress Notes * Shereen SALAZARDOB:1940 ( 84 yo F)Acc No.[id number]:08/19/2024 Progress Notes Patient: Shereen REYES Provider: Jennifer Newsome DPM :1940 A ge:84 Y S ex:Female Date:08/19/2024 Address:[address] [place] [phone] Subjective: * Chief Complaints: * * Medical History: Objective: * Vitals: Assessment: Plan: * Treatment: * Images: * The named appointment provid er may or may not be the originator of this progress note, and it is not deemed complete until electronically signed by the appointment provider. Sign off status: Pending * Provider: Jennifer Newsmoe DPM Date: 10/19/2023 Generated for Sang price/Manan/Dudleyitting on: 0 06/05/2025 06:32 PM EDT
--- OUTSIDE RECORDS SUMMARY | 2024-10-26 04:30 | XMS_ITS ---
Author Organization [facility] Address [address] [place] [address] Care Team Providers Care Electronic Equipment Installer Name Role Phone OjnesRekha beanine Unavailable [phone] Encounters Encounter Location Date Provider Diagnosis [address] [address] 10/26/2024 Daly Jones Plan Of Treatment No Information Progress Notes * Shereen SALAZARDOB:1940 ( 84 yo F)Acc No.[id number]:10/26/2024 Progress Notes Patient: Shereen REYES Provider: Jaspal Jones DPM :1940 A ge:84 Y S ex:Female Date:10/26/2024 Address:[address] [place] [phone] Subjective: * Chief Complaints: * * Medical History: Objective: * Vitals: Assessment: Plan: * Treatment: * Images: * The named appointment provid er may or may not be the originator of this progress note, and it is not deemed complete until electronically signed by the appointment provider. Sign off status: Pending * Provider: Jaspal Jones DPM Date: 0 10/26/2024 Generated for Sang price/Manan/Dudleyitting on: 0 06/05/2025 06:33 PM EDT
--- NOTE | 2025-06-05 15:48 | A.OFFPC_ITS ---
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 Three prong reji.stocking,thigh,reg,med As directed furosemide (Lasix) Take 20mg daily. Increase to 40mg daily as needed for increased edema gauze bandage (Curad Stretch Gauze) wrap gauze around foot and ankle and secure with tape. Change daily honey 100% (Manuka Honey) Apply small ribbon to ulcerations of the R ankle prior to dressing topically; hydroxyzine HCl 25 mg PO BID PRN levothyroxine 125 mcg PO DAILY non-adherent bandage Cover ulcerations of the ankle bilaterally after applying ointment. Change daily sertraline 25 mg PO DAILY 90 days Shower Chair As directed Tobacco use date assessed: 12/26/21 HPI HPI Comments History of Present Illness Details 84-year-old female with history of hypot hyroidism, hyperlipidemia, asthma, cognitive impairment and anxiety presenting to the office today for follow-up. Seen at [facility] ED on 05/23 due to a fall which the patient reports was mechanical. She did hit her head on her nightstand but no loss of consciousness is not on any blood thinners. Fall was unwitnessed. In the ED, vital signs were stable. CT of the head negative for any acute intracranial abnormality or osseous abnormality. CT of the cervical spine also negative for fracture or any focal bony lesion. Did show multilevel advanced degenerative disc disease. She did have 6 jennifer placed in the right parietal scalp which have been removed by [facility]. She is now in assisted living with [facility] in the home for PT/OT. She does have nursing assisting her with medications. She does still have stiffness of her neck and her family has noted that her neck is hunched forward the patient states this is always however her neck is. She is able to move her head back and forth. Concerns about lower extremity edema. Ongoing for weeks. Started on Lasix with some improvement. Also wearing compression stockings. She does have venous ul cers and is followed by [facility] for wound care. No current infection. No fevers Memory deficit-has upcoming appointment with Neurology in June. MRI is pending. Hypothyroidism-on levothyroxine. Previously noncompliant with uncontrolled TSH resulting in severe hyponatremia. Repeat TSH normal and normalization of sodium levels as well Hyperlipidemia-not on statin Anxiety-on sertraline ROS: see hpi EXAM: Constitutional - Awake and Alert, No apparent distress Eyes - PERRL Cardiovascular - S1S2, RRR, 3+ edema Respiratory - Normal lung expansion, Normal respiratory effort, No respiratory distress, CTA bilaterally Extremities - no calf tenderness bilaterally, no swelling Skin - Warm/Dry. Shallow 2cm linear ulceration healing R lateral ankle. Venous stasis with dry skin bilaterally Neurological - Alert & oriented to self and place Psychological - Appropriate affect PFSH Medical History Acquired hypothyroidism Dyspnea Floaters in visual field Hypoglycemia Overweight (BMI 25.0-29.9) Pure hypercholesterolemia Transient visual disturbance Surgical History History of appendectomy History of laparoscopic cholecystectomy Family History Father Heart disease Social History Housing: [facility] Alcohol intake: current Alcohol intake frequency: holidays/special occasions only Patient Tobacco Use Status: Former Tobacco user e-Cigarette/Vaping Use: Never Used Second Hand Smoke Exposure: Yes service: No Current occupational status: retired Cognitive needs: No Hearing needs: Yes Vision needs: Yes Questionnaire Thrive Questionnaire Date Thrive assessed: 12/26/21 AMRITA-7 AMB Questionnaire AMRITA-7 Date AMRITA - 7 assessed: 12/26/21 Source: Developed by Drs. Mark Lyn, Josi Amaral, Kevin Fisher and colleagues, with an educational zahra from [employer] Physical exam (Primary Care) Vital Signs: Last Vital Signs Temp 98.7 F 06/05/25 15:54 Pulse 102 H 06/05/25 15:54 Pulse Ox 98 06/05/25 15:54 Oxygen Delivery Method Room Air 06/05/25 15:54 Tobacco/Smoking Status: Tobacco use Status Tobacco use date assessed 12/26/21 06/05/25 15:52 Patient Tobacco Use Status Former Tobacco user 06/05/25 15:52 e-Cigarette/Vaping Use Never Used 06/05/25 15:52 Thrive Assessment: Date of Thrive Assessment Date Thrive assessed 12/26/21 06/05/25 15:52 Coding Level of Care Code Est Pt Level 4 (55081) Complex EM visit Add On G2211 Diagnoses Lower extremity edema R60.0 Wound of right ankle S91.001A Weakness of neck M53.82 Venous stasis dermatitis I87.2 Assessment & Plan Assessment & Plan (1) Lower extremity edema: Code(s): R60.0 - Localized edema Category: Medical Plan: Continue compression stockings. Use furosemide 20 mg daily, may add additional 20 mg daily for worsening edema. Given elevated BNP at [facility], will check echocardiogram-no acute exacerbation of any heart failure if present (2) Wound of right ankle: Code(s): S91.001A - Unspecified open wound, right ankle, initial encounter Category: Medical Plan: Continue with wound care from [facility]. No evidence of acute infection. (3) Weakness of neck: Code(s): M53.82 - Other specified dorsopathies, cervical region Category: Medical Plan: Referred for physical therapy and occupational therapy. Suspect there is a neurologic component as well. Follow-up with neurology as scheduled (4) Venous stasis dermatitis: Code(s): I87.2 - Venous insufficiency (chronic) (peripheral) Category: Medical Plan: Continue with compression stockings. Use ammonium lactate for moisture and can also use triamcinolone cream as needed for pruritus, erythema, inflammation. Manage edema with furosemide to prevent ulcerations Plan A follow-up in the office in 4 months. Present to the lab in 2 weeks to check renal function electrolyte levels Orders: Orders Basic Metabolic Panel 2 Weeks R60.0 - Localized edema CA echo transthoracic complete 06/05/25 R60.0 - Localized edema, R79.89 - Other specified abnormal findings of blood chemistry [facility]errals [facility] Referral M43.6 - Torticollis, M53.82 - Other specified dorsopathies, cervical region Medications: New calcium carbonate-vitamin D3 600 mg-25 mcg (1,000 unit) 1 cap PO BID 180 caps 1RF triamcinolone acetonide 0.1% Use 1 application as needed to the lower legs bilaterally for any itching, redness, inflammation related to venous stasis dermatitis 80 grams 2RF See below ammonium lactate 12% 1 appl topical BID 400 grams 2RF Changed From furosemide (Lasix) 20 mg PO DAILY 14 tabs 0RF To furosemide (Lasix) Take 20mg daily. Increase to 40mg daily as needed for increased edema 14 tabs 0RF
[2025-06-05 15:54] VITALS: PULSE 102; TEMP 37.1; O2SAT 98
--- OUTSIDE RECORDS SUMMARY | 2025-06-05 18:33 | XMS_ITS | Patient Health Record ---
Author Organization [facility] Address [address] [place] [address] Care Team Providers Care Lithographic Camera Operator Name Role Phone Daly Jones Unavailable [phone] Carl Neswome Unavailable [phone] Reason For Referral No Information Encounters Encounter Location Date Provider Diagnosis [facility] [address] [place] [address] 07/08/[address] [address] 08/05/2024 Carl [facility] [address] [place] [address] 10/20/2024 Daly Jones Plan Of Treatment No Information Insurance Providers Payer Name Payer Address Payer Phone Subscriber Number Group Number Insured Name Patient Relationship to Insured Coverage Start Date Coverage End Date Family Health Plan [address] [place] [address] [phone] Shereen Salazar Self - patient is the insured
== END 2025-06-05 16:39 | disposition home or self-care (01) ==
LOC: HO.HMCHD 15:44
PROVIDERS: Visit Provider Physician Assistant
DX: R60.0 Localized edema (principal); S91.001A Unspecified open wound, right ankle, initial encounter; M53.82 Other specified dorsopathies, cervical region; I87.2 Venous insufficiency (chronic) (peripheral)

== ENCOUNTER → 2025-06-05 16:55 | Outpatient (BNV) | payer OTHER, SELFPAY | PROVIDERS: PCP Physician Assistant; Visit Provider Radiology Diagnostic Radiology | DX: M53.82 Other specified dorsopathies, cervical region (principal); M50.30 Other cervical disc degeneration, unspecified cervical region | CPT/HCPCS: 72040 ==

== ENCOUNTER 2025-07-14 15:48 | Outpatient (REF) | payer OTHER, SELFPAY ==
--- OUTSIDE RECORDS SUMMARY | 2024-08-19 07:30 | XMS_ITS ---
Author Organization [facility] Address [address] [place] [address] Care Team Providers Care Bacteriologist Dairy Name Role Phone JonesDaly bean Unavailable [phone] Carl Newsome Unavailable [phone] Encounters Encounter Location Date Provider Diagnosis [facility] [address] [place] [address] 08/19/2024 Carl Newsome Plan Of Treatment No Information Progress Notes * Shereen SALAZARDOB:1940 ( 85 yo F)Acc No.[id number]:08/19/2024 Progress Notes Patient: Shereen REYES Provider: Jennifer Newsome DPM :1940 A ge:84 Y S ex:Female Date:08/19/2024 Address:[address] [place] [phone] Subjective: * Chief Complaints: * * Medical History: Objective: * Vitals: Assessment: Plan: * Treatment: * Images: * The named appointment provid er may or may not be the originator of this progress note, and it is not deemed complete until electronically signed by the appointment provider. Sign off status: Pending * Provider: Jennifer Newsome DPM Date: 10/19/2023 Generated for Sang price/Manan/Florentin on: 06:10 PM EDT
--- OUTSIDE RECORDS SUMMARY | 2024-10-26 04:30 | XMS_ITS ---
Author Organization [facility] Address [address] [place] [address] Care Team Providers Care Server Developer Name Role Phone JonesRekha beanine Unavailable [phone] Encounters Encounter Location Date Provider Diagnosis [address] [address] 10/26/2024 Daly Jones Plan Of Treatment No Information Progress Notes * Shereen SALAZARDOB:1940 ( 85 yo F)Acc No.[id number]:10/26/2024 Progress Notes Patient: Shereen REYES Provider: Jaspal Jones DPM :1940 A ge:84 Y S ex:Female Date:10/26/2024 Address:[address] [place] [address] Subjective: * Chief Complaints: * * Medical History: Objective: * Vitals: Assessment: Plan: * Treatment: * Images: * The named appointment provid er may or may not be the originator of this progress note, and it is not deemed complete until electronically signed by the appointment provider. Sign off status: Pending * Provider: Jaspal Jones DPM Date: 0 10/26/2024 Generated for Sang price/Manan/Florentin on: 06:10 PM EDT
--- OUTSIDE RECORDS SUMMARY | 2025-07-14 18:10 | XMS_ITS | Clinical Summary ---
Author Organization [facility] Address [address] [id number] Care Team Providers Care Sailing Instructor Name Role Phone Unknown, Pcp MD Primary [...] Treatment Not on file Insurance Marysol Mckinney [facility] [place] [address] [facility] [employer] Care Teams Sailing Instructor Relationship Specialty Start Date End Date Unknown, Pcp, Unknown Address Unknown [place] [address] PCP - General 08/16/17
--- OUTSIDE RECORDS SUMMARY | 2025-07-14 18:11 | XMS_ITS | Patient Health Record ---
Author Organization [facility] Address [address] [place] [address] Care Team Providers Care Clark Driver Name Role Phone Daly Jones Unavailable [phone] Carl Newsome Unavailable [phone] Reason For Referral No Information Encounters Encounter Location Date Provider Diagnosis [facility] [address] [place] [address] 08/05/2024 Carl Newsome [facility] [address] [place] [address] 10/20/2024 Daly Jones Plan Of Treatment No Information Insurance Providers Payer Name Payer Address Payer Phone Subscriber Number Group Number Insured Name Patient Relationship to Insured Coverage Start Date Coverage End Date Family Health Plan [address] [place] [id number] Shereen Salazar Self - patient is the insured
== END 2025-07-14 15:49 | disposition home or self-care (01) ==
LOC: HO.HKASLDS 15:48
PROVIDERS: PCP Physician Assistant; Visit Provider Student in an Organized Health Care Education/Training Program
DX: Z13.89 Encounter for screening for other disorder (principal)

== ENCOUNTER 2025-07-15 16:54 | Outpatient (REF) | payer OTHER, SELFPAY ==
[2025-07-15 20:29] LABS: CDiff Gene PCR NEGATIVE (Negative)
== END 2025-07-15 16:55 | disposition home or self-care (01) ==
LOC: HO.LNP 16:54
PROVIDERS: Visit Provider Student in an Organized Health Care Education/Training Program
DX: R19.7 Diarrhea, unspecified (principal)
CPT/HCPCS: 87493

== ENCOUNTER 2025-08-11 11:05 | Outpatient (AMB) | payer OTHER, SELFPAY ==
--- NOTE | 2025-08-11 11:16 | MHC.PC.OV ---
Vital Signs 08/11/25 11:28 Height 5 ft 2 in Weight 49.442 kg BMI 19.9 BP 104/58 L Blood Pressure Location Lt brachial Position Sitting Respiration 20 Pulse 71 Pulse Source Pulse Oximeter Temp 98.6 F Temp Source Temporal Artery Scan Pulse Oximetry (%) 97 Oxygen Delivery Method Room Air Intake Visit Reasons: ED F/U Nutrition Services Manager Required: No Accompanied by: niece Sita Allergies No Known Allergies Allergy (Verified 08/11/25 11:16) Medication List - Last Reconciled 08/11/25 by JEAN Darby calcium carbonate-vitamin D3 600 mg-12.5 mcg (500 unit) (Calcium with Vit D3) 1 cap PO ONCE cane As directed. Three prong reji.stocking,thigh,reg,med As directed furosemide (Lasix) 20 mg PO DAILY furosemide (Lasix) 20 mg PO DAILY PRN gauze bandage (Curad Stretch Gauze) wrap gauze around foot and ankle and secure with tape. Change daily levothyroxine 125 mcg PO DAILY non-adherent bandage Cover ulcerations of the ankle bilaterally after applying ointment. Change daily polyethylene glycol 3350 17 grams PO DAILY sennosides (senna) 8.6 mg PO DAILY sertraline 25 mg PO DAILY Shower Chair As directed triamcinolone acetonide 0.1% Use 1 application BID as needed to the lower legs bilaterally for any itching, redness, inflammation related to venous stasis dermatitis Tobacco use date assessed: 12/26/21 HPI HPI Comments History of Present Illness Details 84-year-old female with history of hypothyroidism, hyperlipidemia, asthma, cognitive impairment and anxiety presenting to the office today for follow-up. Here with her niece, Sita. Lives in assisted living at [facility]. Two recent admissions to [facility]: 07/17-07/19-observed for abdominal pain secondary to constipation with overflow diarrhea but no evidence of obstructing. Did initially of mild hypokalemia resolved with IV fluids and potassium repletion there is also urinary retention related to constipation required catheterization which resolved. Labs baseline throughout admission. Discharge with stool softeners 07/28-08/04-admitted to [facility] due to ileus with overflow diarrhea and constipation noted on CT abdomen pelvis. Colovaginal fistula also noted and was recommended to follow-up outpatient with colorectal surgeon with aggressive bowel regimen she was also retaining urine which required Zuniga catheter which was ultimately removed and patient was able to void by herself.. Also evidence of STIR collar colitis. Labs again unremarkable, renal function normal. Discharged on MiraLax and senna. Discharge back to assisted living with [facility]. Outpatient appointment with colorectal surgeon, Dr. Moffett, scheduled with appointment September 08. Reports symptoms are greatly improved. No abdominal pain, nausea, vomiting. She does still have some incontinence when standing up. She wears a brief as well. Reports no straining, hard stool. Stool is ?mushy?. sita Memory deficit-on cancellation list for appointment Canceled MRI. Hypothyroidism-on levothyroxine. Last TSH 3.15, had been 47 resulting in critical hyponatremia due to noncompliance. Reports she is taking levothyroxine currently. Hyperlipidemia-not on statin Anxiety-on sertraline LE edema- Echo pending but patient has been hesitant to go. Gets anxious surrounding office visits and procedures. Has been using Lasix 20 mg daily as well as 20 mg prn. Requesting if dose can be cut down. ROS: see hpi EXAM: Constitutional - Awake and Alert, No apparent distress Eyes - PERRL Cardiovascular - S1S2, RRR, 1+ ble edema. IV/ mid systolic murmur best heard at the aortic area Respiratory - Normal lung expansion, Normal respiratory effort, No respiratory distress, CTA bilaterally Extremities - no calf tenderness bilaterally, no swelling Skin - Warm/Dry. Shallow 2cm linear ulceration healing R lateral ankle. Venous stasis with dry skin bilaterally Neurological - Alert & oriented to self and place Psychological - Appropriate affect [facility] Medical History (Updated 08/11/25 @ 12:23 by JEAN Darby) [place]-vesical fistula Constipation Transient visual disturbance Floaters in visual field Overweight (BMI 25.0-29.9) Dyspnea Hypoglycemia Pure hypercholesterolemia Acquired hypothyroidism Surgical History History of appendectomy History of laparoscopic cholecystectomy Family History Father Heart disease Social History Housing: Condominium Alcohol intake: current Alcohol intake frequency: holidays/special occasions only Patient Tobacco Use Status: Former Tobacco user e-Cigarette/Vaping Use: Never Used Second Hand Smoke Exposure: Yes service: No Current occupational status: retired Cognitive needs: No Hearing needs: Yes Vision needs: Yes Questionnaire Thrive Questionnaire Date Thrive assessed: 12/26/21 AMRITA-7 AMB Questionnaire AMRITA-7 Date AMRITA - 7 assessed: 12/26/21 Source: Developed by Drs. Mark Lyn, Josi Amaral, Kevin Fisher and colleagues, with an educational zahra from [employer]. Physical exam (Primary Care) Vital Signs: Last Vital Signs Temp 98.6 F 08/11/25 11:28 Pulse 71 08/11/25 11:28 Resp 20 08/11/25 11:28 BP 104/58 L 08/11/25 11:28 Pulse Ox 97 08/11/25 11:28 Oxygen Delivery Method Room Air 08/11/25 11:28 BMI result Body Mass Index 19.9 Tobacco/Smoking Status: Tobacco use Status Tobacco use date assessed 12/26/21 08/11/25 11:17 Patient Tobacco Use Status Former Tobacco user 08/11/25 11:17 e-Cigarette/Vaping Use Never Used 08/11/25 11:17 Thrive Assessment: Date of Thrive Assessment Date Thrive assessed 12/26/21 08/11/25 11:17 Coding Level of Care Code Est Pt Level 5 (02464) Complex EM visit Add On G2211 Diagnoses Constipation K59.00 [place]-vesical fistula N32.1 Acquired hypothyroidism E03.9 Hospital discharge follow-up Z09 Time Spent (min) 50 Assessment & Plan Assessment & Plan (1) Constipation: Code(s): K59.00 - Constipation, unspecified Category: Medical Plan: Continue with aggressive bowel regimen. Follow-up with Colorectal surgeon as scheduled next month. 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 Continue with hygeine routine (3) Acquired hypothyroidism: Code(s): E03.9 - Hypothyroidism, unspecified Category: Medical Plan: TSH with reflex free T4 ordered. Continue levothyroxine daily (4) Hospital discharge follow-up: Code(s): Z09 - Encounter for follow-up examination after completed treatment for conditions other than malignant neoplasm Category: Medical Plan: Hopsital discharge summary, H&P, labs, AP xr, ct abd/pelvis x 2 admissions. Discharge medications reviewed and reconciled Plan Follow-up in the office in 3 months. Decrease Lasix dose Orders: Orders TSH reflex Free T4 Today E03.9 - Hypothyroidism, unspecified Medications: New zinc oxide-vitamin B5-vit E 11.3 % (Balmex Adult Care) 1 appl topical 6XD PRN 340 grams 1RF skin irritation Changed From furosemide (Lasix) 20 mg PO DAILY 90 tabs 0RF To furosemide (Lasix) 10 mg (1/2 x 20 mg) PO DAILY 90 tabs 1RF From calcium carbonate-vitamin D3 600 mg-12.5 mcg (500 unit) (Calcium with Vit D3) 1 cap PO ONCE To calcium carbonate-vitamin D3 600 mg-12.5 mcg (500 unit) (Calcium with Vit D3) 1 cap PO BID 90 caps 1RF
[2025-08-11 11:28] VITALS: BP 104/58; PULSE 71; RESP 20; TEMP 37; O2SAT 97; BMI 19.9
== END 2025-08-11 12:11 | disposition home or self-care (01) ==
LOC: HO.HMCHD 11:05
PROVIDERS: PCP Physician Assistant; Visit Provider Physician Assistant
DX: K59.00 Constipation, unspecified (principal); N32.1 Vesicointestinal fistula; E03.9 Hypothyroidism, unspecified; Z09 Encounter for follow-up examination after completed treatment for conditions other than malignant neoplasm

== ENCOUNTER → 2025-08-11 11:05 | Outpatient (BNVA) | payer OTHER, SELFPAY | PROVIDERS: PCP Physician Assistant; Visit Provider Physician Assistant | DX: Z09 Encounter for follow-up examination after completed treatment for conditions other than malignant neoplasm (principal); K59.00 Constipation, unspecified; N32.1 Vesicointestinal fistula; E03.9 Hypothyroidism, unspecified; R41.3 Other amnesia; E78.5 Hyperlipidemia, unspecified; F41.9 Anxiety disorder, unspecified; R60.0 Localized edema; Z79.899 Other long term (current) drug therapy | CPT/HCPCS: 99212 ==

== ENCOUNTER 2025-08-11 12:17 | Outpatient (REF) | payer OTHER, SELFPAY ==
[2025-08-11 14:47] LABS: Free T4 (Free Thyroxine) 0.95 ng/dL (0.71-1.85)
== END 2025-08-11 12:18 | disposition home or self-care (01) ==
LOC: HO.10HDL 12:17
PROVIDERS: Visit Provider Physician Assistant
DX: E03.9 Hypothyroidism, unspecified (principal)
CPT/HCPCS: 36415; 84439; 84443